=== PATIENT | male | born 1960 | race American Indian/Alaskan Native ===

== ENCOUNTER 2019-03-23 08:59 | Emergency (ER) | payer SELFPAY ==
[2019-03-23 09:05] VITALS: BP 126/78
--- NOTE | 2019-03-23 09:20 | Emergency Department Report ---
ED ENT HPI - General Chief complaint: Earache Stated complaint: (R) EAR CLOGGED/PAIN Time Seen by Provider: 03/23/19 09:18 Source: patient Mode of arrival: Ambulatory Limitations: No Limitations - History of Present Illness Initial comments: CC: "My ear is clogged up." HPI: 58 yo male presents with ear congestion. Hydrogen peroxide did help,. Denies use of Q-tips, no ear trauma. No nasal congestion. MD complaint: ear pain -: Gradual, days(s) Location: R ear Severity: mild Consistency: constant Improves with: other (hydrogen peroxide) Context- Dental: other (similar history previously) - Related Data Allergies Allergy/AdvReac Type Severity Reaction Status Date / Time No Known Allergies Allergy Unverified 03/23/19 09:03 ED Dental HPI - General Chief complaint: Earache Stated complaint: (R) EAR CLOGGED/PAIN Time Seen by Provider: 03/23/19 09:18 Source: patient Mode of arrival: Ambulatory Limitations: No Limitations - Related Data Allergies Allergy/AdvReac Type Severity Reaction Status Date / Time No Known Allergies Allergy Unverified 03/23/19 09:03 ED Review of Systems ROS: Stated complaint: (R) EAR CLOGGED/PAIN Other details as noted in HPI Constitutional: denies: fever, malaise ENT: denies: ear pain, throat pain, dental pain, congestion Respiratory: denies: shortness of breath ED Past Medical Hx - Past Medical History Previous Medical History?: No - Surgical History Past Surgical History?: No - Social History Smoking Status: Current Some Day Smoker Substance Use Type: Alcohol ED Physical Exam - General Limitations: No Limitations General appearance: alert, in no apparent distress - Head Head exam: Present: atraumatic, normocephalic - ENT ENT exam: Present: other (cerumen impaction right ear) - Neck Neck exam: Present: normal inspection, full ROM - Respiratory Respiratory exam: Absent: respiratory distress - Neurological Exam Neurological exam: Present: alert, oriented X3 - Psychiatric Psychiatric exam: Present: normal affect, normal mood ED Course Vital Signs 03/23/19 09:03 Temperature 98.1 F Pulse Rate 84 Respiratory 16 Rate Blood Pressure 126/78 O2 Sat by Pulse 98 Oximetry ED Medical Decision Making - Medical Decision Making Mrs. Day presents with cerumen impaction right ear. I was able to remove a copious amount of wax with curette. I was still unable to visualize tympanic membrane. I asked nurse to perform ear irrigation prior to discharge. Critical care attestation.: If time is entered above; I have spent that time in minutes in the direct care of this critically ill patient, excluding procedure time. ED Disposition Clinical Impression: Impacted cerumen of right ear Disposition: DC-01 TO HOME OR SELFCARE Is pt being admited?: No Does the pt Need Aspirin: No Condition: Stable Instructions: Cerumen Impaction (ED)
[2019-03-23] MEDS ORDERED: COLACE OT ONE (09:33)
== END 2019-03-23 11:08 | disposition home or self-care (01) ==
LOC: ED 08:59
DX: H61.21 Impacted cerumen, right ear (principal); F17.200 Nicotine dependence, unspecified, uncomplicated